=== PATIENT | male | born 1985 | race Caucasian/White ===

== ENCOUNTER 2020-12-28 08:43 | Outpatient (REF) | payer BC, SELFPAY ==
[2020-12-28 12:37] LABS: Abs Immature Grans 0.02 10^3/uL (0.0-0.06); Absolute Basophil Count 0.02 10^3/uL (0.0-0.2); Absolute Eosinophil Count 0.27 10^3/uL (0.0-0.7); Absolute Lymphocyte Count 1.64 10^3/uL (1.2-3.4); Absolute Monocyte Count 0.76 10^3/uL (0.1-0.8); Absolute Neutrophil Count 3.18 10^3/uL (1.2-6.7); Basophils % 0.3; Eosinophils % 4.6; HCT 43.5 % (40.0-50.0); HGB 15.5 g/dL (13.5-17.5); Immature Grans % 0.3; Lymphocytes % 27.8; MCH 32.4 pg (27.0-33.0); MCHC 35.6 % (32.0-36.0); MPV 9.9 fL (8.0-11.0); Monocytes % 12.9; Neutrophils % 54.1; Nucleated RBC 0 %; Platelet Count 245 10^3/uL (130-400); RBC 4.78 10^6/uL (4.36-5.78); RDW 11.9 % (11.8-14.1); RDW-SD 39.3 fL; WBC 5.89 10^3/uL (4.4-10.8)
[2020-12-28 13:06] LABS: ALT 30 U/L (16-63); AST 20 U/L (15-37); Albumin 3.9 g/dL (3.4-5.0); Alkaline Phosphatase 81 U/L (46-116); Anion Gap 8.7 mmol/L (3-11); BUN 18 mg/dL (7-18); Bilirubin, Total 0.5 mg/dL (0.2-1.0); CO2 28.3 mmol/L (21.0-32.0); CREATININE 0.9 mg/dL (0.70-1.30); Calcium 8.9 mg/dL (8.5-10.1); Calculated LDL 99 mg/dL (<100); Chloride 105 mmol/L (98-107); Cholesterol 169 mg/dL (<200); Glucose 97 mg/dL (74-106); HDL Cholesterol 53 mg/dL (40-60); Magnesium 1.7 mg/dL (1.8-2.4); Potassium 4.1 mmol/L (3.5-5.1); Sodium 142 mmol/L (136-145); Total Protein 6.9 g/dL (6.4-8.2); Triglyceride 87 mg/dL (<150)
== END 2020-12-28 08:44 | disposition home or self-care (01) ==
LOC: NCHCN 08:43
PROVIDERS: PCP Physician Assistant Medical; Visit Provider Nurse Practitioner Family
DX: R07.9 Chest pain, unspecified (principal); R00.2 Palpitations; R00.0 Tachycardia, unspecified
CPT/HCPCS: 80053; 80061; 83735; 85025

== ENCOUNTER 2021-10-11 16:50 | Emergency (ER) | payer BC, SELFPAY ==
[2021-10-11 16:57] VITALS: BP 94/45; PULSE 65; RESP 14; TEMP 36.5; O2SAT 98
--- NOTE | 2021-10-11 17:00 | DI.RAD_ITS ---
Exam(s) XR HAND RT COMPLETE EXAM: XR HAND RT COMPLETE CLINICAL HISTORY: 4th 5th finger crush injury. TECHNIQUE: 2D digital imaging was performed. Three views. COMPARISON: No exams were available for comparison FINDINGS: Gauze overlies the 4th and 5th fingers. The somewhat obscures the bony detail. There is or also ove rlap of the 4th and 5th fingers on the lateral view. There is a nondisplaced fracture of the middle phalanx of the 4th finger. There is also a nondisplaced fracture at the distal aspect of the middle phalanx of the 5th finger which extends to the articular surface. Soft tissue lacerations are seen i nvolving both fingers greatest at the middle phalanges. No foreign bodies. IMPRESSION: Nondisplaced fractures of the middle phalanges of the 4th and 5th fingers. DATA REPOSITORY: RADIATION DOSE DELIVERED:
--- NOTE | 2021-10-11 17:03 | ED.GENADUL_ITS ---
Discharge Plan Disposition Patient Disposition: HOME Condition: Stable Discharge Details Clinical Impression: Open fracture of finger of right hand, Laceration of finger of right hand Primary Care Provider: Leonor River ED Provider: Kellie Meraz Home Meds and New Rx's Prescriptions: New cephalexin 500 mg capsule 500 mg PO BID 10 Days Qty: 20 0RF Rx Instructions: Take with yogurt or probiotic Discharge Instructions Instructions: Finger Fracture (ED), Finger Laceration (ED) Additional Instructions: Take the antibiotic twice daily x10 days. Take pain medication as needed for moderate to severe pain. The numbing medication should wear off in approximately 4 hours. Rest ice compression elevation. After 24 hours he may take the splint off and wash under running soap and water. Allowed to air dry daily. Sutures will need to be removed approximately 10 to 14 days. Return sooner for any signs of infection including increased redness, red streaks, drainage or worsening pain. Follow-up with orthopedics within the next week. Please take Tylenol or Ibuprofen with food every 4-6 hours as needed for pain and swelling. Stand Alone Forms: Work Release Referrals: Gavin Pedersen MD [ [facility] STAFF PHYSICIAN] - 1 week Medical Decision Making Patient dropped approximately 80 pound gear onto right hand just prior to arrival. He presents diaphoretic, laceration noted to his fourth and fifth digits on the giron side. He denies any wrist pain. XR, lidocaine, and wound care ordered. Laceration repaired under aeseptic technique, As per procedure note wound was anesthetized with 1% lidocaine and bupivacaine. Patient tolerated well. Wound was then irrigated with sterile normal saline and chlorhexidine. Lacerations repaired with a total of 16 simple interrupted sutures using 4.0 ethilon. 5th digit was partially amputated, bleeding was controlled post repair. I did consult with orthopedics and with Dr. Pedersen regarding patient. He recommends cleaning,closing lacerations, splinting with fingers in a straight position. I will have patient follow-up with orthopedics within the week. Sutures to be removed in 10 to 14 days or per Ortho recommendations. I will place patient on antibiotic for open fracture. Imaging Data Radiologic Study: Imaging: X-Ray Radiologist's impression: Age: 36 years old Clinical indication: Other: 4th and 5th finger crush injury TECHNIQUE: Imaging protocol: Radiologic exam of the Right hand. Views: 3 or more views. COMPARISON: No relevant prior studies available. FINDINGS: Comminuted minimally displaced fracture at the diaphysis of the 4th finger middle phalanx. No other acutely displaced fractures. No dislocation or aggressive osseous lesion. Soft tissue swelling throughout the 4th and 5th fingers. IMPRESSION: 1. Comminuted fracture at the 4th finger middle phalanx. 2. Swelling at the 4th and 5th fingers. Thank you for allowing us to participate in the care of your patient. Dictated and Authenticated by: Wing Austin MD 10/11/2021 5:43 PM Eastern Time ([place] & [place]) HPI General Mode of arrival: ambulatory . Date/Time Provider Initiated Documentation: 10/11/21 16:53 . Limitations to Documentation: no limitations . Information obtained by: patient and RN notes reviewed . HPI Narrative: Patient dropped approximately 80 pounds gear onto right hand just prior to arrival while at work. He presents diaphoretic, laceration noted to his fourth and fifth digits on the x-ray and. He denies any wrist pain. Related Data Home Medications Medication Instructions Recorded Confirmed cephalexin 500 mg capsule 500 mg PO BID 10 days #20 caps 10/11/21 Previous Rx's Medication Instructions Recorded cephalexin 500 mg capsule 500 mg PO BID 10 days #20 caps 10/11/21 Allergies Allergy/AdvReac Type Severity Reaction Status Date / Time No Known Allergies Allergy Unverified 10/11/21 17:01 General Stated Complaint: Orthopedic ARIAS: 3 Review of Systems Integumentary/Breasts Skin/Breast: Reports as per HPI and Reports wounds PFSH All Active Problems (Updated 10/11/21 @ 19:11 by Kellie Meraz NP) Subarachnoid bleed (Acute) Intracranial aneurysm (Acute) Head ache (Acute) Strep throat (Acute) Open fracture of finger of right hand (Acute) Laceration of finger of right hand (Acute) Social History Smoking/Tobacco Use Status: Never Smoking risk assessment performed?: Yes Alcohol Intake: never Drug use: Never Substance use type: does not use Do you feel safe at home: Yes Do you feel safe in your relationship?: Yes Exam Const General: cooperative, healthy appearing, in distress moderate, diaphoretic and does not appear intoxicated Nutritional Appearance: average body habitus and well nourished Orientation: alert, awake and oriented x3 Extrem Right upper extremity: hand Details: abnormal to inspection, tenderness and laceration (Giron side 4th and 5th fingers.) Hand/finger images: 1. Approximately 2 cm irregular laceration and partial amputation of right 5th finger. Able to flex , unable to assess distal flexion due to underlying fracture, I do suspect possible tendon involvement distally to the distal IP joint. 2. Approximately 3 cm partial thickness laceration irregular, with flap. Slow venous ooze noted. Distal CMS intact prior to repair. Course Vital Signs Vital signs: Vital Signs Temperature 36.5 C 10/11/21 16:57 Pulse 65 10/11/21 16:57 Respiratory Rate 14 10/11/21 16:57 Blood Pressure 94/45 L 10/11/21 16:57 Pulse Oximetry 98 10/11/21 16:57 Temperature 36.5 C 10/11/21 16:57 Temperature Source Tympanic 10/11/21 16:57 Pulse 65 10/11/21 16:57 Respiratory Rate 14 10/11/21 16:57 Blood Pressure 94/45 L 10/11/21 16:57 Blood Pressure Position Supine 10/11/21 16:57 Pulse Oximetry 98 10/11/21 16:57 Oxygen Delivery Method Room Air 10/11/21 16:57 Oxygen Flow Rate 0 10/11/21 16:57 Pain Level 10 10/11/21 16:57 Procedures Laceration Laceration 1: Site: hand Side (If applicable): right Size (cm): 2 Description: irregular Depth: involves muscle layer Local Anesthetic: Lidocaine 1% and Bupivicaine 0.5% Amount of anesthesia used (mL): 5 Pre-repair: wound explored and irrigated extensively Skin layer closed with: nylon Size (cm): 4-0 Number of sutures: 6 Technique: simple, interrupted Laceration 2: Site: hand (Ring Finger) Side (If applicable): right Size (cm): 4 Description: flap and irregular Depth: involves muscle layer Local Anesthetic: Lidocaine 1% and Bupivicaine 0.5% Amount of anesthesia used (mL): 5 Pre-repair: wound explored and irrigated extensively Skin layer closed with: nylon Size (cm): 4-0 Number of sutures: 10 Technique: simple, interrupted Nerve Block Nerve Block 1: Time out performed: No Local Anesthetic: Lidocaine 1% and Bupivicaine 0.5% Amount of anesthesia used (mL): 5 Side: right Nerve Blocks: digital Patient Tolerated Procedure: well and no complications
--- NOTE | 2021-10-11 17:43 | DI.VRAD_ITS ---
PROCEDURE INFORMATION: Exam: XR Right Hand Exam date and time: 10/11/2021 5:21 PM Age: 36 years old Clinical indication: Other: 4th and 5th finger crush injury TECHNIQUE: Imaging protocol: Radiologic exam of the Right hand. Views: 3 or more views. COMPARISON: No relevant prior studies available. FINDINGS: Comminuted minimally displaced fracture at the diaphysis of the 4th finger middle phalanx. No other acutely displaced fractures. No dislocation or aggressive osseous lesion. Soft tissue swelling throughout the 4th and 5th fingers. IMPRESSION: 1. Comminuted fracture at the 4th finger middle phalanx. 2. Swelling at the 4th and 5th fingers. Dictated and Authenticated by: Wing Mccrary MD. Ordering:SANDY Hopkins MD
[2021-10-11] MEDS: Cephalexin 500 MG CAP PO (19:45)
[2021-10-11] MEDS: Cephalexin 500 MG CAP, 2 CAPS/BTL PO (19:45)
[2021-10-11] MEDS: Lidocaine 1% Pres-Free 30 ML VIAL IJ (19:46)
== END 2021-10-11 19:50 | disposition home or self-care (01) ==
PROVIDERS: Emergency Provider Registered Nurse Emergency; PCP Physician Assistant Medical
DX: S62.624B Displaced fracture of middle phalanx of right ring finger, initial encounter for open fracture (principal); S61.216A Laceration without foreign body of right little finger without damage to nail, initial encounter; W20.8XXA Other cause of strike by thrown, projected or falling object, initial encounter; Y99.0 Civilian activity done for income or pay
CPT/HCPCS: 12004; 99283; 73130; 99282; J3490

== ENCOUNTER 2021-10-19 10:30 | Outpatient (CLI) | payer BC, SELFPAY ==
--- NOTE | 2021-10-19 10:00 | DI.RAD_ITS ---
Exam(s) XR HAND RT COMPLETE EXAM: XR HAND RT COMPLETE CLINICAL HISTORY: f/u fractures TECHNIQUE: COMPARISON: CR,XR XR HAND RT COMPLETE from 10/11/2021 FINDINGS: Three views were obtained. Previous described fractures of the middle phalanges of the ring finger a nd little finger are again noted. Alignment appears mostly unchanged from the prior examination, alt toan a single elongated fracture fragment of the middle phalanx of the ring finger is appears to be projected more proximally than on the prior examination, at the level of the PIP joint. Please corre late clinically regarding any symptomatology from this displaced fracture fragment. IMPRESSION: RADIATION DOSE DELIVERED: Total DLP
== END 2021-10-19 10:31 | disposition home or self-care (01) ==
LOC: DIORS 10:30
PROVIDERS: PCP Physician Assistant Medical; Referring Provider Physician Assistant Medical; Visit Provider Physician Assistant
DX: S62.624D Displaced fracture of middle phalanx of right ring finger, subsequent encounter for fracture with routine healing; S62.656D Nondisplaced fracture of middle phalanx of right little finger, subsequent encounter for fracture with routine healing; X58.XXXD Exposure to other specified factors, subsequent encounter
CPT/HCPCS: 73130

== ENCOUNTER 2022-03-16 11:12 | Outpatient (REF) | payer OTHER, SELFPAY ==
[2022-03-16 15:13] LABS: Abs Immature Grans 0.02 10^3/uL (0.0-0.06); Absolute Basophil Count 0.02 10^3/uL (0.0-0.2); Absolute Eosinophil Count 0.16 10^3/uL (0.0-0.7); Absolute Lymphocyte Count 1.86 10^3/uL (1.2-3.4); Absolute Neutrophil Count 3.16 10^3/uL (1.2-6.7); Basophils % 0.3; Eosinophils % 2.7; HCT 45.9 % (40.0-50.0); HGB 16.3 g/dL (13.5-17.5); Immature Grans % 0.3; MCH 32.1 pg (27.0-33.0); MCHC 35.5 % (32.0-36.0); MCV 91 fL (80-95); MPV 10.1 fL (8.0-11.0); Monocytes % 10.3; Neutrophils % 54.4; Platelet Count 277 10^3/uL (130-400); RBC 5.07 10^6/uL (4.36-5.78); RDW 11.6 % (11.8-14.1); RDW-SD 38.1 fL; WBC 5.82 10^3/uL (4.4-10.8)
[2022-03-16 15:37] LABS: Hemoglobin A1C 5.1 % (<5.7)
[2022-03-16 15:52] LABS: ALT 34 U/L (16-63); AST 26 U/L (15-37); Albumin 4.5 g/dL (3.4-5.0); Alkaline Phosphatase 79 U/L (46-116); Anion Gap 7.6 mmol/L (3-11); BUN 19 mg/dL (7-18); Bilirubin, Total 0.9 mg/dL (0.2-1.0); CO2 29.4 mmol/L (21.0-32.0); CREATININE 0.9 mg/dL (0.70-1.30); Calcium 9.7 mg/dL (8.5-10.1); Chloride 103 mmol/L (98-107); Estimated GFR 112.81 (mL/min/1.73m2); Glucose 113 mg/dL (74-106); Potassium 4.3 mmol/L (3.5-5.1); Sodium 140 mmol/L (136-145); TSH (W/Ref FT4) 3.28 uIU/mL (0.36-3.74)
== END 2022-03-16 11:13 | disposition home or self-care (01) ==
LOC: NCHCN 11:12
PROVIDERS: PCP Physician Assistant Medical; Visit Provider Nurse Practitioner Family
DX: R00.2 Palpitations (principal); R07.9 Chest pain, unspecified; R73.09 Other abnormal glucose
CPT/HCPCS: 80053; 83036; 83735; 84443; 85025

== ENCOUNTER 2022-03-29 10:46 | Outpatient (CLI) | payer OTHER, SELFPAY | END 2022-03-29 10:47 | disposition home or self-care (01) | LOC: CARDOPNVT 10:46 | PROVIDERS: PCP Physician Assistant Medical; Visit Provider Nurse Practitioner Family | DX: R00.1 Bradycardia, unspecified (principal) | CPT/HCPCS: 93246 ==

== ENCOUNTER 2022-04-23 09:33 | Outpatient (CLI) | payer OTHER, SELFPAY ==
--- NOTE | 2022-04-23 09:42 | W.CARDEVENT ---
Date of service: 04/23/22 Time of Service: 09:43 Cardiac Event Recorder Referring Provider:: Nieves Jade Indications:: Tachycardia Cardiac Event Note: This is a 14-day cardiac event monitor Rhythm throughout was sinus with average heart rate of 77. Minimum was 48, maximum 153 Very rare isolated atrial and ventricular ectopic beats were seen There was no atrial fibrillation, no SVT, no high-grade AV block, no pauses greater than 3 seconds Two patient symptoms were reported which did not correspond to any dysrhythmia
== END 2022-04-23 09:34 | disposition home or self-care (01) ==
LOC: CARDOPNVT 09:33
PROVIDERS: PCP Physician Assistant Medical; Visit Provider Internal Medicine Cardiovascular Disease
DX: R00.0 Tachycardia, unspecified (principal)

== ENCOUNTER 2023-05-28 12:49 | Outpatient (REF) | payer BC, SELFPAY ==
[2023-05-28 15:27] LABS: Abs Immature Grans 0.01 10^3/uL (0.0-0.06); Absolute Basophil Count 0.02 10^3/uL (0.0-0.2); Absolute Eosinophil Count 0.12 10^3/uL (0.0-0.7); Absolute Lymphocyte Count 1.82 10^3/uL (1.2-3.4); Absolute Monocyte Count 0.63 10^3/uL (0.1-0.8); Absolute Neutrophil Count 3.29 10^3/uL (1.2-6.7); Basophils % 0.3; HCT 45.2 % (40.0-50.0); HGB 16.8 g/dL (13.5-17.5); Immature Grans % 0.2; Lymphocytes % 30.9; MCH 33.1 pg (27.0-33.0); MCHC 37.2 % (32.0-36.0); MCV 89 fL (80-95); MPV 9.8 fL (8.0-11.0); Monocytes % 10.7; Neutrophils % 55.9; Platelet Count 267 10^3/uL (130-400); RBC 5.07 10^6/uL (4.36-5.78); RDW 11.7 % (11.8-14.1); RDW-SD 37.6 fL; WBC 5.89 10^3/uL (4.4-10.8)
[2023-05-28 16:03] LABS: Calculated LDL 117 mg/dL (<100); Cholesterol 194 mg/dL (<200); HDL Cholesterol 60 mg/dL (40-60); Hemoglobin A1C 5.3 % (<5.7); Triglyceride 85 mg/dL (<150)
[2023-05-31 17:27] LABS: Testosterone, Total 415 ng/dL (240-950)
== END 2023-05-28 12:50 | disposition home or self-care (01) ==
LOC: NCHCN 12:49
PROVIDERS: PCP Physician Assistant Medical; Referring Provider Physician Assistant Medical; Visit Provider Physician Assistant Medical
DX: R07.9 Chest pain, unspecified (principal); F52.21 Male erectile disorder
CPT/HCPCS: 80061; 84403; 83036; 84443; 85025

== ENCOUNTER → 2023-06-06 01:46 | Outpatient (CLI) | payer BC, SELFPAY ==
--- NOTE | 2023-06-06 | ETT_ITS ---
APPROVED REPORT Exam: Exercise Treadmill Patient Location: Out-Patient Room/Bed: Stress Nurse: Ayleen Cavanaugh RN Ordering Provider:ZACK SHRESTHA, Contact Number: [phone] BMI: 31.59 Baseline Rhythm: Sinus Rhythm Indications: Chest pain, Medical History Medical History: None significant Cardiac Medications: Albuterol Allergies: NKA Cardiac Risk Factors: None Previous Cardiac Procedures: None Pretest Chest Pain Characteristics: None Exercise History: Physically active Physical Disabilities: None Lung Sounds: Clear to auscultation Heart Sounds: Regular Stress Test Details Test: Exercise stress testing was performed using a Mukund protocol. Rest Stress HR Resting HR Supine: 68 bpm Max Heart Rate (APMHR): 181 bpm Resting HR Standin bpm Target HR (85% APMHR): 154 bpm Max HR Achieved: 162 bpm % of APMHR: 90 Recovery HR: 89 bpm HR response to stress: Normal HR response to stress BP Resting BP Supine: 110/82 mmHg Resting BP Standin/82 mmHg Max BP: 142/70 mmHg Recovery BP: 118/84 mmHg BP response to stress: Normal blood pressure response to stress. ECG Resting ECG: Sinus Rhythm Ectopy: None Stress ECG: Sinus Tachycardia ST Change: No significant ST segment changes noted Arrhythmia: None Recovery ECG: Sinus Rhythm Recovery ST Change: No significant ST segment changes noted Recovery Arrhythmia: None Clinical Reason for Termination: Target HR Achieved Stress Symptoms: None Exercise duration: 10 min00 sec Highest Stage Reached: Stage 3: 3.4 mph at 14% grade. Exercise capacity: 11.80 METs Angina Score: None Maciel Treadmill Score: 9.5 Rate Pressure Product: 24002 Stress ECG Conclusion 1. Resting EKG was normal 2. Patient exercised on Mukund protocol, completed 11.8 METS 3. Normal heart rate and blood pressure response to exercise. Patient achieved 90% of predicted hear t rate for age 4. There was no electrocardiographic evidence of myocardial ischemia 5. There were no dysrhythmias Maciel Treadmill Score is 9.5 which is Low risk. Stress Test Summary STAGE Time (mins) Speed (mph) Grade (%) HR BP SpO2 SYMPTOMS METS Supine 68 110/82 Standing 66 112/82 1 3 1.7 10 107 122/78 94 4.5 2 6 2.5 12 128 142/70 95 7 3 9 3.4 14 162 10 1 min recovery 114 134/62 96 3 min recovery 91 132/70 97 6 min recovery 89 118/84
== END ==
PROVIDERS: PCP Physician Assistant Medical; Visit Provider Physician Assistant Medical
DX: R07.9 Chest pain, unspecified (principal)
CPT/HCPCS: 93017

== ENCOUNTER → 2023-06-19 04:15 | Outpatient (CLI) | payer BC, SELFPAY ==
--- NOTE | 2023-06-19 07:35 | DI.US_ITS ---
APPROVED REPORT EXAM: Comprehensive 2D, Doppler, and color-flow Echocardiogram Patient Location: Out-Patient Retail Sales Merchandiser: Marti An RDCS (AE) Indications: Chest pain unspecified Other Information Study Quality: Good Conclusion Normal left ventricular wall thickness and chamber size. EF is 60%. Wall motion is normal Normal right ventricular size and function Both atria are normal in size There is no structural or hemodynamically significant valvular disease Wall motion Left Ventricle The left ventricle is normal size. The left ventricular systolic function is normal. The left ventric ular ejection fraction is within the normal range. There is normal left ventricular wall thickness. T here is normal LV segmental wall motion. There is no ventricular septal defect visualized. LVEF is 60 %. Right Ventricle The right ventricle is normal size. The right ventricular systolic function is normal. Atria The left atrium size is normal. The right atrium size is normal. Prominent Eustachian valve is noted in the right atrium. Aortic Valve The aortic valve is normal in structure. Aortic valve is trileaflet. There is no aortic valvular sten osis. No aortic regurgitation is present. Mitral Valve The mitral valve is normal in structure. No evidence of mitral valve stenosis. Trace mitral regurgita tion. Tricuspid Valve The tricuspid valve is normal in structure. There is no tricuspid valve stenosis. Trace tricuspid reg urgitation. Unable to assess PA pressure. Pulmonic Valve The pulmonary valve is normal in structure. There is no pulmonic valvular stenosis. There is no pulmo yoshi valvular regurgitation. Great Vessels The aortic root is normal in size. The ascending aorta is normal in size. Aortic arch is normal in ca liber. IVC is normal in size and collapses >50% with inspiration. Pericardium There is no pericardial effusion. 2D Dimensions IVSD d PLAX 0.81 cm M: 0.6-1.2 Ao Root d 3.44 cm M: 3.1 - 3.7 LVPW d PLAX 0.79 cm M: 0.6 - 1.2 Ao Asc Diam d 3.38 cm M: 2.6 - 3.4 LVID d PLAX 4.91 cm M: 4.2 - 5.8 LVDs 3.20 cm M: 2.5 - 4.0 LV EF Teichholz 63.9 % FS 34.88 % LV EDV (Teich) 113.3 mL LV ESV (Teich) 40.9 mL M-Mode TAPSE 2.71 cm (M/F) >1.7 Auto EF LV EDV A4C 140.2 mL LV EDV A2C 159.5 mL LV EDV BP 150.2 mL LV ESV A4C 60.2 mL LV ESV A2C 68.0 mL LV ESV BP 64.7 mL LVEF(%) A4C 57.1 % LVEF(%) A2C 57.4 % LVEF(%) BP 56.9 % LV SV A4C 80.0 ml LV SV A2C 91.5 ml LV SV BP 85.5 ml LV CO A4C 4.8 L/min LV CO A2C 5.5 L/min LV CO BP 5.2 L/min HR A4C 60.40 BPM HR A2C 60.20 BPM LV EDV Index (BP) LA Volume LA Length A4C 5.2 cm LA Length A2C 5.4 cm LA Area A4C s 14.93 cm2 LA Area A2C s 17.38 cm2 LA Vol A4C A-L 36.55 mL LA Vol A2C A-L 47.40 mL LA Vol Biplane A-L 42.5 mL LA Vol/BSA A4C A-L LA Vol/BSA A2C A-L LA Vol/BSA BP A-L 20.0 mL/m2 LA Vol A4C MOD 33.6 mL LA Vol A2C MOD 45.3 mL LA Vol BP MOD 39.8 mL RA Volume RA Area A4C 14.9 cm2 RA ESV A4C (A-L) 43.5mL RA Vol/BSA A4C A-L RA Length A4C 4.4 cm RA ESV A4C (MOD) 42.0mL LV Diastology MV E' medial 0.123 (>0.07 m/s) MV E Vmax 0.64 (0.4-1.3 m/s) MV E/E' MED 5.22 (<14) MV A Vmax 0.55 (0.4-1.3 m/s) MV E' lateral 0.123 (>0.1 m/s) E/A Ratio 1.2 MV E/E' LAT 5.21 (<14) MV E' Average 0.123 m/s MV E/E'(average) 5.22 Aortic Valve AoV Vmax 1.39 m/s LVOT Vmax 1.15 m/s AoV Peak Grad 7.7 mmHg LVOT Peak Grad 5.3 mmHg AoV Area (Vmax) 2.97 cm2 LVOT VTI 0.261 m AoV VTI 0.326 m LVOT Mean Grad 2.4 mmHg AoV Mean Tomas. 0.99 m/s LVOT SV 94.16 mL AoV Mean Grad 4.4 mmHg LVOT Diam s 2.10 cm AoV Area (VTI) 2.89 cm2 Velocity Ratio 0.83 Mitral Valve MV DT 324 (160-240 msec) MV Vmax TIPS 0.76 m/s MV Mean Grad 1.0 (<2mmHg) MV VTI 0.277 m Pulmonary Valve PV Vmax 1.06 (0.5-1.5 m/s) RVOT Vmax 0.71 m/s PV Peak Grad 4.5 mmHg RVOT Peak Gr. 2.0 mmHg PV Mean Tomas 0.73 m/s RVOT VTI 0.167 m PV Mean Grad 2.4 mmHg RVOT Mean Gr. 1.1 mmHg Tricuspid Valve TV S' 0.15 m/s
== END ==
PROVIDERS: PCP Physician Assistant Medical; Visit Provider Physician Assistant Medical
DX: R07.9 Chest pain, unspecified (principal)
CPT/HCPCS: 93306